=== PATIENT | female | born 1935 | race Caucasian/White ===

== ENCOUNTER 2019-06-28 07:17 | Inpatient (IN) ==
[~2019-06-28 07:17] MED LIST: BUPIVACAINE HCL 50 ML VIAL IJ PRN; BUPIVACAINE HCL/EPINEPHRINE 50 ML VIAL ONE; DEXAMETHASONE SODIUM PHOSPHATE 10 MG/ML VIAL ONE; LIDOCAINE HCL 50 ML VIAL ONE; ONDANSETRON HCL/PF 2 MG/ML VIAL ONE; PROPOFOL VIAL IV ONE; SEVOFLURANE 250 ML BTL IH ONE; ceFAZolin SODIUM 1 GM VIAL IV PRN
[2019-06-28] MEDS ORDERED: ceFAZolin SODIUM 1 GM VIAL ONE (07:33)
[2019-06-28] MEDS: RINGER'S SOLUTION,LACTATED 1,000 ML IV PRN ×2 (08:00→10:40)
--- NOTE | 2019-06-28 08:26 | ANES ---
Anesthesia Pre Procedure Eval Vitals/Labs: Last Vital Signs Temp 37.4 C 06/28/19 07:35 Pulse 64 06/28/19 07:35 Resp 18 06/28/19 07:35 BP 192/66 H 06/28/19 07:35 Pulse Ox 97 06/28/19 07:35 HOME MEDICATIONS hydrocodone 5 mg-acetaminophen 325 mg tablet 1 tab PO Q4H PRN #30 tab 06/24/19 [Last Taken Unknown] Allergies/Adverse Reactions: Allergies Allergy/AdvReac Type Severity Reaction Status Date / Time No Known Drug Allergies Allergy Verified 06/24/19 09:46 - Planned Procedure Planned Procedure: ORIF Right Proximal Humerus vs Reverse Total Shoul Medication List Reviewed:: Yes Allergies Verified: Yes Medical History (Last Reviewed 06/28/19 @ 08:23 by Pedro Navarrete CRNA) Hx of intestinal obstruction Onset Date: ~1992 Surgical History (Last Reviewed 06/28/19 @ 08:23 by Pedro Navarrete CRNA) Hx of abdominal surgery Onset Date: ~1992 Family History (Last Reviewed 06/28/19 @ 08:23 by Pedro Navarrete CRNA) Father Diabetes Brother Cancer Mother Medical history unknown - Family Anesthesia History Family History:: no untoward family reactions to anesthesia, no familial bleeding tendencies, no family history of clotting disorders, no family history of premature - Airway/Neck/Teeth Teeth Condition: none Denture Type: Full upper, Full lower Neck Exam: full range of motion Mallampatti Score: 2 Thyromental (T-M) distance: > 6 cm Mandibulo Hyoid distance: > 3 cm - Respiratory Smoking Status: Former smoker - quit 30 years Sleep Apnea currently treated: No Sleep Apnea by current assessment: No - Cardiovascular Tolerate Activity: Fair Heart Sounds: S1 & S2, Regular - Gastrointestinal NPO since: 2399 - Anesthesia Assessment and Plan ASA Class: PS, III Anesthesia Type Plan: General LMA, Block - interscalene block for post op pain relief
[2019-06-28] MEDS ORDERED: ONDANSETRON HCL/PF 2 MG/ML VIAL IV PRN (12:04)
[2019-06-28] MEDS ORDERED: MORPHINE SULFATE 2 MG/ML DISP.SYRIN IV PRN (12:04)
[2019-06-28] MEDS ORDERED: MAG HYDROX/ALUMINUM HYD/SIMETH 30 ML UDC PO PRN (12:04)
[2019-06-28] MEDS ORDERED: MAGNESIUM HYDROXIDE 30 ML UDC PO PRN (12:04)
[2019-06-28] MEDS ORDERED: NORMAL SALINE 1,000 ML IV PRN (12:04)
[2019-06-28] MEDS ORDERED: oxyCODONE HCL/ACETAMINOPHEN 1 TAB TABLET PO PRN (12:04)
--- NOTE | 2019-06-28 12:29 | OR ---
Operative Report - Dictated Report Narrative: Date: 06/07/2019 Physician: Lior Michael M.D. Cadd Technician: Jaciel Zhang PA-C provided a set of essential, skilled, educated hands that assisted in positioning, transfer, retraction, manipulation, irrigation, closure of wounds, and placement of dressings all of which could not be provided by the available surgical crew. Preoperative diagnosis: Right proximal humeral surgical neck fracture Postoperative diagnosis: Right three-part proximal humerus fracture involving the surgical neck and greater tuberosity Procedure: Right cemented reverse total shoulder arthroplasty Anesthesia: General plus regional Complications: None Estimated blood loss: 200 mL Specimens: Humeral head for pathology Retained implants: Depuy Delta Xtend cemented size 1 monobloc 12 mm humeral stem, Delta Xtend cementless metaglene, Delta Xtend 38 mm +2 glenosphere, Delta Xtend polyethylene cup 38 mm/+9 mm Drains: None Indications: Antonio is a 77 year-old female who sustained a right three-part proximal humerus fracture after a fall from standing height. She was initially seen in the emergency department where plain films revealed the above injury. She was placed in a shoulder immobilizer and followed up in my clinic to discuss treatment options. A preoperative CT was obtained which demonstrated a comminuted fracture of the surgical neck with a large posteromedial spike as well as some mild comminution of the very distal aspect of the greater tuberosity. We discussed the options of nonoperative management versus open reduction internal fixation versus hemiarthroplasty versus reverse total shoulder arthroplasty. I counseled her that based on the fracture pattern, we w ould go in with a plan of open reduction internal fixation but convert to reverse total shoulder arthroplasty if we felt this was necessary. The risks, benefits, and alternatives were discussed in clinic. The risks being , bleeding, infection, axillary nerve injury, vascular injury, persistent pain, instability, stiffness, need for prolonged therapy, implant failure/loosening, need for additional procedures, and persistent symptoms. Consent was obtained in the clinic. Procedure: After marking the correct extremity in the preoperative holding area, a timeout was performed in the operating room. IV antibiotics consisting of 1 g of Ancef were administered prior to the procedure. A general followed by regional anesthetic was induced by the nurse counter tacker. This was in the supine position, then the patient was transitioned to a beachchair position with all bony prominences well-padded, head in neutral, the nonoperative arm well supported, and the legs padded with SCDs in place. The operative shoulder was then prepped and draped in a standard sterile fashion. After marking out the bony landmarks, an approximately 12 cm deltopectoral incision was marked out and incised with a sharp knife. A combination of blunt dissection and electrocautery was carried down through subcutaneous tissue to the level of the deltopectoral fascia. The fascial interval was developed with Metzenbaum scissors identifying the cephalic vein which was protected. Blunt finger dissection was used to develop the deltopectoral interval and the deltoid and cephalic vein were retracted laterally while the pectoralis major was retracted medially. This revealed the conjoined tendon and anterior aspect of the shoulder. The fracture site was identified and thoroughly debrided of all non-viable tissue with a combination of a sharp knife and a rongeur. This demonstrated a surgical neck fracture along with a slightly comminuted fracture of the greater tuberosity. There was significant impaction of the humeral head onto the shaft. Electrocautery was used to develop the rotator cuff interval between the supraspinatus and subscapularis tendons, which were intact. A sharp knife was used to tenotomize the biceps tendon. At this point, we proceeded with osteotomizing the lesser tuberosity as well as the greater tuberosity for later repair. This was done with a three-quarter inch straight osteotome. Once the tuberosities were osteotomized the humeral head was retrieved out of the wound and placed on the Garza stand. Any loose fragments of bone were removed from the joint. At this point the arm was externally rotated and the proximal humeral shaft was delivered out of the wound. Sequential hand reaming up to a size 12 mm reamer was performed achieving good cortical chatter. The reamer was then removed and due to the fracture, there was no further humeral prep needed at this point. Three #2 Fiberwire sutures were placed through the infraspinatus tendon in preparation for later tuberosity repair. These were tagged with hemostats. Attention was then turned to the glenoid. A series of glenoid retractors were used to retract the tuberosities and proximal humeral shaft out of the way, as well as to retract the anterior soft tissue giving us 360 exposure of the glenoid. The labrum and remaining biceps stump were then removed in their entirety with a sharp knife. The base of the coracoid was identified as well as the inferior/lateral border of the scapula and these were marked out to establish the bony anatomy of the glenoid. The glenoid guide was then placed in the appropriate position flush with the inferior portion of the glenoid and the center guide pin was advanced into place angled approximately 10 degrees superiorly. The glenoid was then reamed removing all cartilage and soft tissue being careful to preserve subchondral bone. The central peg drill was then advanced down over our central pin and drilled. The guidepin was then removed. The cementless metaglene was then impacted into place in the appropriate rotation. The superior and inferior screws were then drilled, measured, and filled with the appropriate length locking screws. The anterior and posterior holes were then drilled, measured, and filled with the appropriate length nonlocking screws. The superior and inferior locking screws were then tightened. We then secured a 38 mm +2 offset glenosphere onto the metaglene. Attention was turned back to the humerus. A 12 mm monoblock cemented humeral stem was chosen. The 3 Fiberwire sutures throughout infraspinatus were then placed through the medial calcar hole of the implant and brought anteriorly through the subscapularis tendon. 4 drill holes were then placed in the proximal humeral shaft and two #2 Fiberwire sutures were placed through these holes for additional tuberosity fixation. A cement restrictor was then advanced down the humeral canal to the appropriate depth. The humeral canal was then prepared with a brush and Pulsavac irrigation. This was stuffed with a dry Ray- Maddison sponge. The cement was then mixed and, once it reached the appropriate consistency, the humeral canal was filled with cement. The stem was then advanced down the humeral canal and approximately 20 degrees of retroversion and held while the cement cured. Once the cement had adequately hardened, we began trialing polyethylene cups. It was found that a 38 mm /+9 mm poly gave good stability and good soft tissue tension. The final polyethylene cup was impacted into place and the joint was reduced. We then turned our attention to our tuberosity repair. Bone graft was obtained from the humeral head using a ronguer. This was packed around the proximal body of the stem. The 3 sutures through the infraspinatus and subscapularis were then sequentially tied bringing the tuberosities into the appropriate position over the top of our packed bone graft. Additional bone graft was packed between the tuberosities and our implant. The 2 sutures from the proximal humeral shaft were placed through the infraspinatus and subscapularis tendons to provide restraint to superior migration. We felt we had adequate tuberosity repair at this point. The shoulder was taken through range of motion and found to have good stability and full passive motion with no impingement. At this point the wound was copiously irrigated with normal saline. 0 Vicryl was utilized in order to close the delto-pectoral fascia. 3-0 Vicryl was placed in the subcutaneous tissue. Skin was closed with a running subcuticular 4-0 Monocryl. Dressings consisting of Prineo, 4 x 4, ABD, and tape were applied. The operative arm was then placed in a shoulder immobilizer. All sponge, needle, blade, and instrument counts were correct prior to closing the wounds. The patient was awoken and transferred to the postanesthesia care unit in stable condition.
--- NOTE | 2019-06-28 12:33 | ANES ---
Post Anesthesia Discharge - Transfer of Care Transfer of Care handoff given to nurse: Yes - Discharge from PACU Discharge from PACU when meets criteria: Yes - Comfortable
--- NOTE | 2019-06-28 12:35 | ANES ---
Anesthesia Procedure Note Procedure Note: ANESTHESIA PROCEDURE NOTE Date of Procedure: [05/28/2019 Time of procedure: 9:00 AM. Performed by: MANUEL Hirsch CRNA, MSN Supervisor Maintenance: Cici Albert RN. Preprocedure diagnosis: Post right shoulder arthroplasty pain. Post procedure diagnosis: Same. Procedure: Right interscalene nerve block. Indications: Post right total shoulder arthroplasty pain relief. Findings: See below. Details of the procedure: The patient was brought to OR #4 and placed in semi- Fowlers position. The patient was prepped with chlorhexidine and using ultrasound guidance the right interscalene segment of the brachial plexus was identified and lidocaine 1% was infiltrated to the skin of the intended inject ion site. Under ultrasound guidance the interscalene nerve bundles were approached with visualization of a 2inch stimulator needle visualized unde ultrasound until a shoulder/arm response was identified on nerve stimulator. Once the stimulator response was effective at less than 0.5 mV and greater than 0.3 mV the bracheal plexus nerves at this level were surrounded with 25 mL bupivacaine 0.5% with 1-200,000 epinephrine. Please see radiology/ultrasound report for details and retained images of the procedure. EBL: 0 Fluids: N/A. Specimen: N/A. Post procedure condition: The patient tolerated the procedure well. No complications were noted. Thank you for this consultation. Pedro Navarrete CRNA, ARNP, MSN
--- NOTE | 2019-06-28 13:03 | ANES ---
Post Anesthesia Assessment - Vital Signs Vitals: Last Vital Signs Temp 37.3 C 06/28/19 12:45 Pulse 68 06/28/19 12:45 Resp 18 06/28/19 12:45 BP 123/48 06/28/19 12:45 Pulse Ox 95 06/28/19 12:45 Airway Patency: Normal - Mental Status Level Of Consciousness: Awake, Alert, Appropriate - Pain Level Pain Score: 0 - N/V Assessment Nausea/Vomiting Presence: None Dehydration:: No
[2019-06-28] MEDS: ceFAZolin SODIUM 1 GM in DEXTROSE 5 % IN WATER 100 ML IV SCH ×4 (16:45→23:03)
[2019-06-28] MEDS ORDERED: SENNOSIDES/DOCUSATE SODIUM 1 TAB TABLET PO SCH (21:00)
[2019-06-28] MEDS: ACETAMINOPHEN 500 MG TABLET PO PRN (21:36)
[2019-06-29] MEDS: ACETAMINOPHEN 500 MG TABLET PO PRN (04:23)
[2019-06-29 06:29] LABS: Hematocrit 34.4 % (37.0-47.0); Hemoglobin 10.7 gm/dL (12.5-16.0); Mean Cell Volume 96.4 fl (78-100); Mean Corpuscular Hgb Conc 31.1 g/dl (32-36); Mean Platelet Volume 9.3 fl (8-12.5); Platelet Count 279 K/mm3 (150-450); Red Blood Count 3.57 M/mm3 (4.2-5.4); Red Cell Distribution Width 13.3 % (11.5-14.0); White Blood Count 12.3 K/mm3 (4.0-10.5)
[2019-06-29 06:36] LABS: Anion Gap 11.7 mmol/L (6.8-13.8); BUN/Creatinine Ratio 24.7 (9.0-21.6); Calcium * 8.7 mg/dL (7.9-10.9); Estimated Creat Clear 34.8; Potassium 3.7 mmol/L (3.4-4.6)
[2019-06-29] MEDS: oxyCODONE HCL/ACETAMINOPHEN 1 TAB TABLET PO PRN ×2 (06:40→12:52)
[2019-06-29] MEDS: ceFAZolin SODIUM 1 GM in DEXTROSE 5 % IN WATER 100 ML IV SCH ×2 (08:37)
--- NOTE | 2019-06-29 14:07 | PN ---
Subjective - Date and Time Seen Date: 06/29/19 Time: 14:04 Subjective Narrative: No events overnight. Pain controlled. No other complaints today. Objective - Vitals Vitals: Last Vital Signs Temp 36.5 C 06/29/19 11:20 Pulse 62 06/29/19 11:20 Resp 20 06/29/19 11:20 BP 132/46 06/29/19 11:20 Pulse Ox 94 06/29/19 11:20 - Abnormal Lab Findings Abnormal Lab Findings: Abnormal Lab Results 06/29/19 06/29/19 Range/Units 06:26 06:26 WBC 12.3 H (4.0-10.5) K/mm3 RBC 3.57 L (4.2-5.4) M/mm3 Hgb 10.7 L (12.5-16.0) gm/dL Hct 34.4 L (37.0-47.0) % MCHC 31.1 L (32-36) g/dl Sodium 143 H (132-142) mmol/L Plasma Sodium 143 H (130-142) mmol/L BUN 24 H (3-23) mg/dL Est GFR (Non-Af Amer) 58 L (60-130) mL/min BUN/Creatinine Ratio 24.7 H (9.0-21.6) - Exam Exam Narrative: Gen: Alert, oriented, no distress Resp: breathing non-labored on room air MSK: immobilizer in place, dressings c/d/i, no drainage or erythema, SILT, distal cap refill brisk Assessment/Plan Plan Narrative: 84 yo F s/p R reverse total shoulder arthroplasty for proximal humerus fracture. -reg diet -oral pain meds -Prineo dressing intact -acute blood loss anemia - Hgb 10.7, monitor -patient did well with PT/OT and is safe for discharge to son's home -d/c today - Problems/Diagnosis (1) Proximal humerus fracture Problem: Acute Qualifiers: Encounter type: initial encounter Fracture type: closed Fracture morphology: other fracture Fracture alignment: displaced Laterality: right Qualified Code(s): S42.291A - Other displaced fracture of upper end of right humerus, initial encounter for closed fracture
--- NOTE | 2019-06-29 14:18 | DS ---
(1) Proximal humerus fracture Problem: Acute Qualifiers: Encounter type: initial encounter Fracture type: closed Fracture morphology: other fracture Fracture alignment: displaced Laterality: right Qualified Code(s): S42.291A - Other displaced fracture of upper end of right humerus, initial encounter for closed fracture Date of Discharge:: 06/29/19 Hospital Course: The patient was taken to the OR on 06/28/19 and underwent R reverse total shoulder arthroplasty for a displaced proximal humerus fracture. She tolerated the procedure well and there were no complications. She was admitted to the floor postoperatively where she remained stable and recovered as expected. She resumed a normal diet as well as normal bladder/bowel function. Pain was well controlled with oral pain meds. She was deemed safe for discharge to her son's home on post-operative day 1. Procedures Performed: see notes below List Procedures: R reverse total shoulder arthroplasty - 06/28/19 Results and Findings: Lab Pending Results 06/28/19 13:27: Pathology Specimen Spec to path 06/29/19 06:26: WBC 12.3 H, RBC 3.57 L, Hgb 10.7 L, Hct 34.4 L, MCV 96.4, MCH 30.0, MCHC 31.1 L, RDW 13.3, Plt Count 279, MPV 9.3 06/29/19 06:26: Sodium 143 H, Plasma Sodium 143 H, Potassium 3.7, Chloride 105, Carbon Dioxide 30.0, Anion Gap 11.7, BUN 24 H, Creatinine 0.97, Est GFR (Non-Af Amer) 58 L, BUN/Creatinine Ratio 24.7 H, Random Glucose 107, Calcium 8.7 Discharge Location: Home Disposition: Home self-care Condition: Good Discharge Activity: Non-Weight bearing Discharge Diet: General/regular food Referrals: Guillermo Barclay MD [Primary Care Provider] - Problem Oriented Discharge Instructions to Patient/Family: Shoulder Joint Replacement Additional Patient Instructions (free text): Orthopedic Discharge Instructions: 1. NWB, immobilizer at all times except for hygeine and therapy exercises. 2. Oral pain meds. 3. Sponge baths until follow up. Inspect Prineo dressing daily and notify the rthopedic clinic of any drainage or if the dressing is peeling off. 4. Follow up in the Orthopedic office with Dr. Michael ThursdayJuly 11 at 9:30a.m. 5. [facility] Physical Therapy appointment Thursday check in at 9:40a.m. 6. Call [phone] with any questions or concerns. Lior Michael MD Prescriptions (Any new or edited meds): HYDROcodone/ACETAMINOPHEN [Hydrocodon-Acetaminophen 5-325] 1 - 2 tab PO Q6H PRN #30 tablet PRN Reason: Pain Transmission Status: Sent to [facility][id number] Complete Home Medications List: Complete Home Medication List: hydrocodone 5 mg-acetaminophen 325 mg tablet 1 tab PO Q4H PRN #30 tab 06/24/19 HYDROcodone/ACETAMINOPHEN [Hydrocodon-Acetaminophen 5-325] 1 - 2 tab PO Q6H PRN #30 tablet 06/29/19
[2019-06-29 15:46] VITALS: BP 138/51
== END 2019-06-29 15:35 | disposition home or self-care (01) | DRG 483 ==
LOC: SUR 07:17 → MS 11:03
PROVIDERS: ADMIT Orthopaedic Surgery; ATTEND Orthopaedic Surgery
DX: Y93.89 Activity, other specified; S42.251A Displaced fracture of greater tuberosity of right humerus, initial encounter for closed fracture; Y92.9 Unspecified place or not applicable; S42.231A 3-part fracture of surgical neck of right humerus, initial encounter for closed fracture; W01.0XXA Fall on same level from slipping, tripping and stumbling without subsequent striking against object, initial encounter
CPT/HCPCS: 36415; 73030; 80048; 85027; 88307; 88311; 88888; 97116; 97140; 97161; 97165; 97535; J2405